=== PATIENT | male | born 1965 | race Caucasian/White ===

== ENCOUNTER 2022-12-19 13:45 | Emergency (ER) | payer MEDICAID, OTHER ==
[~2022-12-19] VITALS: Ht 177.8 cm; Wt 54.4 kg
--- NOTE | 2022-12-19 14:06 | NUR ---
PT IS IN ROOM #2B. DR MIN EVALUATED THE PT.
[2022-12-19] MEDS ORDERED: IV NORMAL SALINE 1000 ML BAG IV ONE ×2 (14:15→17:15)
[2022-12-19] MEDS ORDERED: ESCI20TA PO (14:16)
[2022-12-19] MEDS ORDERED: LORAZEPAM PO (14:16)
[2022-12-19] MEDS ORDERED: LISI10TA29 PO (14:16)
[2022-12-19] MEDS ORDERED: PHEN-704 PO (14:16)
[2022-12-19] MEDS ORDERED: NITR50CA PO (14:16)
[2022-12-19 15:07] LABS: HEMATOCRIT 28.6 % (36.7-47.1); MEAN CORPUSCULAR HEMOGLOBIN 27.2 uug (23.8-33.4); MEAN CORPUSCULAR VOLUME 85.3 fL (73.0-96.2); PLATELET COUNT (AUTO) 259 K/uL (152-348)
[2022-12-19 15:32] LABS: ALANINE AMINOTRANSFERASE 13 U/L (16-63); ALKALINE PHOSPHATASE 67 U/L (50-136); ASPARTATE AMINOTRANSFERASE 19 U/L (15-37); BILIRUBIN,DIRECT 0.1 mg/dL (0.0-0.2); BILIRUBIN,TOTAL 0.2 mg/dL (0.2-1.0); CARBON DIOXIDE 27 mmol/L (21-32); CHLORIDE 109 mmol/L (98-107); CREATININE 0.6 mg/dL (0.6-1.3); GLUCOSE 94 mg/dL (74-106); TOTAL PROTEIN, SERUM 5.6 g/dL (6.4-8.2); UREA NITROGEN, BLOOD 11 mg/dL (7-18)
[2022-12-19] MEDS ORDERED: CEFTRIAXONE 1 G in IV DEXTROSE 5% 50 ML IV ONE (16:30)
[2022-12-19] MEDS ORDERED: AZITHROMYCIN IV 500 MG in IV DEXTROSE 5% 250 ML IV ONE (16:30)
[2022-12-19] MEDS ORDERED: HYDROCODONE/APAP 5-325MG TABLET PO ONE (16:45)
[2022-12-19] MEDS ORDERED: CEFTRIAXONE /D5W 50ML IVPB **ER PYXIS IV ONE (17:15)
[2022-12-19] MEDS ORDERED: AZITHROMYCIN 500MG/ D5W 250ML IVPB **ER PYXIS ONLY IV ONE (17:15)
[2022-12-19] MEDS ORDERED: HYDROCODONE/APAP 5-325MG TABLET ONE (17:16)
[2022-12-19] MEDS ORDERED: LEVO500T90 PO (17:24)
--- NOTE | 2022-12-19 18:09 | NUR ---
PT DECIDED TO LEAVE HOSPITAL AMA. DR MIN EXPLAINED ALL RISKS OF LEAVING HOSPITAL AMA TO THE PT. PT VERBALIZED FULL UNDERSTANDING. PT SIGNED AMA FORM.
[2022-12-19 19:10] VITALS: BP 132/76
--- NOTE | 2022-12-19 19:10 | NUR ---
PT LEFT HOSPITAL WITH HIS FATHER BY CAR.
== END 2022-12-19 19:11 | disposition left against medical advice (07) ==
LOC: ER 13:45
DX: R55 Syncope and collapse (principal); A41.9 Sepsis, unspecified organism; J18.9 Pneumonia, unspecified organism; D64.9 Anemia, unspecified; R07.89 Other chest pain; Z79.899 Other long term (current) drug therapy; Z79.2 Long term (current) use of antibiotics
CPT/HCPCS: 99291; 96365; 70450; 96361; 96367; 80076; 80048; 85025; 84145; 87040 ×2; 84484; 36415; 93005; 71045; 96368; 83605; J0456; J0696; J7040; A4663